=== PATIENT | female | born 1960 | race Caucasian/White ===

== ENCOUNTER → 2016-08-02 | Outpatient (CLI) | payer OTHER ==
--- NOTE | 2016-08-02 18:28 | MA ---
Screening Digital Mammogram, With Tomosynthesis and iCAD August 02, 2016 Indication: Routine screening. Technique: Four views of each breast are obtained including CC and oblique lateral Phil (implant d isplaced) and non-Phil (implant not displaced) views. Digital breast tomosynthesis was performed i n the implant-displaced MLO projection, with reconstruction at 1.0-mm slice thickness and composite M LO views reconstructed. This examination is processed by the iCAD computer aided detection system. Comparison: July 2015, December 2013, December 2012, and May 2011. Breast density: Type C. Findings: CAD was reviewed. No suspicious microcalcifications, mass, or architectural distortion. Impression: Negative mammogram. BI-RADS 1. Recommendation: Routine screening is recommended in one year, as long as physical examination is albin ign, in this patient with moderately dense breast parenchyma. Negative mammography should not preclude additional workup of a clinically suspicious finding. The patient's information is entered into a reminder system with a target due date for her next mammo gram. [facility] will send a result letter to the patient.
== END ==
LOC: FIMAGING 13:26
DX: Z12.31 Encounter for screening mammogram for malignant neoplasm of breast (principal)
CPT/HCPCS: G0202

== ENCOUNTER → 2018-01-25 | Outpatient (CLI) | payer OTHER | LOC: FIMAGING 15:13 | PROVIDERS: ATTEND Internal Medicine | DX: Z12.31 Encounter for screening mammogram for malignant neoplasm of breast (principal) ==